=== PATIENT | female | born 1995 | race Caucasian/White ===

== ENCOUNTER 2022-05-27 10:17 | Inpatient (IN) ==
[2022-05-27 11:41] LABS: Urine Benzodiazepine Screen None Detected (None Detect); Urine Cannabinoids Screen None Detected (None Detect); Urine Opiates Screen None Detected (None Detect)
[2022-05-27] MEDS ORDERED: Oxytocin 10 UNITS/ML 1 ML VIAL IM ONE (13:09)
[2022-05-27] MEDS ORDERED: Witch Hazel PAD JAR TOPICAL PRN (13:09)
[2022-05-27] MEDS: Dibucaine 1% OINT 28.35 GM TUBE PR PRN (13:30)
[2022-05-28] MEDS: Dibucaine 1% OINT 28.35 GM TUBE PR PRN (04:12)
[2022-05-28 07:03] LABS: Hematocrit 38 % (35-47); Hemoglobin 13.2 g/dL (12.0-16.0); Mean Corpuscular HGB Conc 35 g/dL (31-36); Mean Corpuscular Hemoglobin 31 pg (27-31); Mean Corpuscular Volume 88 fL (80-97); Mean Platelet Volume 9.2 fL (7.4-10.4); Platelet Count 178 10^3/uL (150-450); Red Blood Count 4.31 10^6 /uL (3.70-4.87); Red Cell Distribution Width 14 % (10-15); White Blood Count 25.2 10^3/uL (3.5-10.8)
[2022-05-28 08:28] LABS: ABS Basophils 0.1 10^3/ul (0-0.2); ABS Eosinophils 0.2 10^3/ul (0-0.6); ABS Lymphocytes 1.1 10^3/ul (1.0-4.8); ABS Monocytes 2.1 10^3/ul (0-0.8); ABS Neutrophils 21.7 10^3/ul (1.5-7.7); Eosinophil % 0.8 %; Lymphocyte % 4.3 %
[2022-05-28] MEDS: Mometasone/Formoter 200/5 MDI INH SCH ×2 (12:20→20:46)
[2022-05-28] MEDS: Fluticasone NASAL SPRAY 50MCG 16 gm SPRAY BTL INTRANASAL SCH (12:20)
[2022-05-29 06:37] LABS: ABS Basophils 0.1 10^3/ul (0-0.2); ABS Eosinophils 0.6 10^3/ul (0-0.6); ABS Monocytes 1.1 10^3/ul (0-0.8); ABS Neutrophils 11.3 10^3/ul (1.5-7.7); Hematocrit 36 % (35-47); Hemoglobin 12.2 g/dL (12.0-16.0); Lymphocyte % 7.3 %; Mean Corpuscular HGB Conc 34 g/dL (31-36); Mean Corpuscular Hemoglobin 30 pg (27-31); Mean Corpuscular Volume 89 fL (80-97); Mean Platelet Volume 8.7 fL (7.4-10.4); Nucleated Red Blood Cells % 0.1; Platelet Count 160 10^3/uL (150-450); Red Blood Count 4.03 10^6 /uL (3.70-4.87); Red Cell Distribution Width 14 % (10-15); White Blood Count 14.1 10^3/uL (3.5-10.8)
[2022-05-29 08:36] VITALS: BP 133/68
[2022-05-29] MEDS: Mometasone/Formoter 200/5 MDI INH SCH (08:49)
[2022-05-29] MEDS: Fluticasone NASAL SPRAY 50MCG 16 gm SPRAY BTL INTRANASAL SCH (08:52)
== END 2022-05-29 12:58 | disposition home or self-care (01) | DRG 560 ==
LOC: MCHOBOUT 10:17 → MCHOB 10:51
PROVIDERS: ADMIT Midwife; ATTEND Midwife

== ENCOUNTER 2022-06-05 18:01 | Observation (INO) ==
[2022-06-05 20:16] LABS: Urine Appearance Cloudy; Urine Bilirubin Negative (Negative); Urine Blood 2+ (Negative); Urine Color Yellow; Urine Glucose Negative (Negative); Urine Ketones Negative (Negative); Urine Nitrite Negative (Negative); Urine Protein 1+(30 mg/dL) (Negative); Urine Specific Gravity 1.023 (1.002-1.030); Urine Urobilinogen Negative (Negative)
[2022-06-05 20:22] LABS: Urine Bacteria 2+ (Absent); Urine Red Blood Cell 3+(>10/hpf) (Absent); Urine Squamous Epithelial Cell Present (Absent); Urine White Blood Cell 3+(>20/hpf) (Absent); Urine Yeast Present (Absent)
[2022-06-05] MEDS ORDERED: Lactated Ringers 1000 ml BAG 1,000 ML IV ONE ×2 (20:36→22:52)
[2022-06-05 21:23] LABS: Hematocrit 42 % (35-47); Hemoglobin 13.8 g/dL (12.0-16.0); Mean Corpuscular HGB Conc 33 g/dL (31-36); Mean Corpuscular Hemoglobin 29 pg (27-31); Mean Corpuscular Volume 88 fL (80-97); Mean Platelet Volume 7.3 fL (7.4-10.4); Platelet Count 316 10^3/uL (150-450); Red Blood Count 4.75 10^6 /uL (3.70-4.87); Red Cell Distribution Width 14 % (10-15); White Blood Count 15.5 10^3/uL (3.5-10.8)
[2022-06-05 21:35] LABS: Activated Partial Thrombo Time 32.2 seconds (26.0-38.0); INR 1.12 (0.88-1.18)
[2022-06-05 21:44] LABS: Albumin 3.9 g/dL (3.2-5.2); Albumin/Globulin Ratio 1.3 (1-3); C Reactive Protein 166.11 mg/L (<8.01); Calcium 8.9 mg/dL (8.6-10.3); Creatinine, Serum 0.76 mg/dL (0.51-0.95); Total Bilirubin 0.5 mg/dL (0.2-1.0); Total Protein 6.9 g/dL (6.4-8.9); eGFR CKD-EPI 110.8 (>60)
[2022-06-05 21:57] LABS: ABS Eosinophils 0.1 10^3/ul (0-0.6); ABS Lymphocytes 0.9 10^3/ul (1.0-4.8); ABS Monocytes 0.6 10^3/ul (0-0.8); ABS Neutrophils 13.9 10^3/ul (1.5-7.7); Eosinophil % 0.8 %; Lymphocyte % 5.6 %
[2022-06-05] MEDS ORDERED: cefTRIAXone 1 gm/50 mL D5W 1 GM/50 ML BAG IV ONE (22:33)
[2022-06-05 22:56] LABS: High Sensitivity Troponin 1 Hr 10 pg/mL (<15)
[2022-06-06] MEDS: Lactated Ringers 1000 ml BAG 1,000 ML IV SCH ×2 (02:33→11:03)
[2022-06-06 05:53] LABS: Hematocrit 39 % (35-47); Hemoglobin 12.8 g/dL (12.0-16.0); Mean Corpuscular HGB Conc 33 g/dL (31-36); Mean Corpuscular Hemoglobin 29 pg (27-31); Mean Corpuscular Volume 87 fL (80-97); Platelet Count 303 10^3/uL (150-450); Red Blood Count 4.48 10^6 /uL (3.70-4.87); Red Cell Distribution Width 14 % (10-15); White Blood Count 12.9 10^3/uL (3.5-10.8)
[2022-06-06 05:59] LABS: Erythrocyte Sed Rate 79 mm/Hr (0-19)
[2022-06-06 06:14] LABS: ABS Basophils 0.1 10^3/ul (0-0.2); ABS Eosinophils 0.1 10^3/ul (0-0.6); ABS Lymphocytes 1.3 10^3/ul (1.0-4.8); ABS Monocytes 0.6 10^3/ul (0-0.8); ABS Neutrophils 10.9 10^3/ul (1.5-7.7); Eosinophil % 0.5 %; Lymphocyte % 9.8 %
[2022-06-06 06:28] LABS: Calcium 8.6 mg/dL (8.6-10.3); Creatinine, Serum 0.8 mg/dL (0.51-0.95); Potassium 3.9 mmol/L (3.5-5.0); eGFR CKD-EPI 104.1 (>60)
[2022-06-06] MEDS: Mometasone/Formoter 200/5 MDI INH SCH ×3 (07:38→19:02)
[2022-06-06] MEDS: Fluticasone NASAL SPRAY 50MCG 16 gm SPRAY BTL INTRANASAL SCH (08:26)
[2022-06-06] MEDS ORDERED: cefTRIAXone 1 gm/50 mL D5W 1 GM/50 ML BAG IV SCH (21:00)
[2022-06-07] MEDS: Mometasone/Formoter 200/5 MDI INH SCH (07:07)
[2022-06-07 07:45] LABS: Hematocrit 38 % (35-47); Hemoglobin 12.7 g/dL (12.0-16.0); Mean Corpuscular HGB Conc 33 g/dL (31-36); Mean Corpuscular Hemoglobin 29 pg (27-31); Mean Corpuscular Volume 88 fL (80-97); Mean Platelet Volume 6.9 fL (7.4-10.4); Platelet Count 302 10^3/uL (150-450); Red Blood Count 4.35 10^6 /uL (3.70-4.87); Red Cell Distribution Width 14 % (10-15); White Blood Count 8.3 10^3/uL (3.5-10.8)
[2022-06-07 08:21] LABS: RBC Morphology Normal (Normal)
[2022-06-07] MEDS: Fluticasone NASAL SPRAY 50MCG 16 gm SPRAY BTL INTRANASAL SCH (08:52)
[2022-06-07 09:01] LABS: ABS Eosinophils 0.4 10^3/ul (0-0.6); ABS Lymphocytes 1.7 10^3/ul (1.0-4.8); ABS Monocytes 0.9 10^3/ul (0-0.8); ABS Neutrophils 5.2 10^3/ul (1.5-7.7); Eosinophil % 5.2 %
[2022-06-07 11:45] VITALS: BP 121/71
[2022-06-07 15:15] LABS: Complement C3 185 mg/dL (75 - 175)
[2022-06-08 12:53] LABS: Sm (Smith) IgG Antibody <0.2 U
[2022-06-08 17:47] LABS: Phospholipid Ab IgG < 9.4 GPL; Phospholipid Ab IgM, S < 9.4 MPL
== END 2022-06-07 14:58 | disposition home or self-care (01) ==
LOC: EDHOLD 18:01 → ED 18:01 → SUATTDRO 23:43 → MED 06-06 01:30
PROVIDERS: ADMIT Internal Medicine; ATTEND Internal Medicine